=== PATIENT | male | born 1990 | race Hispanic/Latino ===

== ENCOUNTER 2018-06-22 20:30 | Observation (INO) | payer SELFPAY ==
--- NOTE | 2018-06-22 22:06 | CT ---
CT OF THE BRAIN WITHOUT CONTRAST: 06/22/18 INDICATION: Headache. COMPARISON: None. FINDINGS: No acute infarct, hemorrhage or hydrocephalus is present. The septum pellucidum and third ventricle a re midline. The skull and extracranial soft tissues are normal appearing. IMPRESSION: No acute intracranial abnormality. POS: [facility]
--- NOTE | 2018-06-22 22:22 | RAD ---
CHEST ONE VIEW: 06/22/18 INDICATION: Chest pain and headache. COMPARISON: None. FINDINGS: The lungs are clear. The cardiomediastinal silhouette is normal. No acute osseous abnormality is evid ent. IMPRESSION: No acute cardiopulmonary abnormality. POS: [facility]
[2018-06-22 22:46] LABS: #Eosinphils 0.1 thou/uL (0.0-0.7); #Lymphocytes 3.1 thou/uL (1.20-3.40); #Monocytes 0.8 thou/uL (0.11-0.59); #Neutrophils 7.3 thou/uL (1.40-6.50); %Basophils 0.3 % (0.0-1.0); %Lymphocytes 27.3 % (21.0-51.0); %Neutrophils 64.3 % (42.0-75.0); Hemoglobin 15.7 g/dL (14.0-18.0); Mean Corpuscular HGB CONC 34.3 g/dL (32.0-36.0); Mean Corpuscular Hemoglobin 30.6 pg (27.0-31.0); Mean Platelet Volume 8.2 fL (7.4-10.4); Platelet Count 217 thou/uL (130-400); RBC Distribution Width 12.3 % (11.5-14.5); Red Blood Cell (RBC) Count 5.12 mill/uL (4.70-6.10); White Blood Cell (WBC) Count 11.3 thou/uL (4.8-10.8)
[2018-06-22 22:55] LABS: ALT (SGPT) 30 U/L (8-55); AST (SGOT) 22 U/L (5-34); Albumin 4.7 g/dL (3.5-5.0); Alkaline Phosphatase 100 U/L (40-150); Anion Gap 12 mmol/L (10-20); BUN (Urea Nitrogen) 5 mg/dL (8.9-20.6); Bilirubin, Total 0.8 mg/dL (0.2-1.2); CK (CPK) 398 U/L (30-200); Calc. Creatinine Clearance 0 mL/min (70-130); Calcium 9.7 mg/dL (7.8-10.44); Carbon Dioxide 27 mmol/L (22-29); Chloride 102 mmol/L (98-107); Estimated GFR-MDRD Greater than 90; Globulin 3.1 g/dL (2.4-3.5); Glucose 105 mg/dL (70-105); Potassium 3.2 mmol/L (3.5-5.1); Protein, Total 7.8 g/dL (6.0-8.3); Sodium 138 mmol/L (136-145)
[2018-06-22 22:59] LABS: Troponin I Less than 0.010 ng/mL (< 0.028)
[2018-06-23] MEDS ORDERED: Aspirin 325 MG TAB ONE (01:12)
[2018-06-23] MEDS ORDERED: Nitroglycerin 2% Ointment 1 INCH/1 GM Packet ONE (01:12)
[2018-06-23] MEDS ORDERED: Ondansetron HCl/PF 4 MG/2 ML Vial IVP PRN (02:22)
[2018-06-23] MEDS ORDERED: Acetaminophen 325 MG TAB PO PRN (02:22)
[2018-06-23] MEDS ORDERED: Ondansetron ODT 4 MG TAB SL PRN (02:22)
[2018-06-23 02:25] VITALS: BMI 23.6
[2018-06-23 02:39] LABS: Troponin I Less than 0.010 ng/mL (< 0.028)
[2018-06-23 05:07] LABS: Troponin I Less than 0.010 ng/mL (< 0.028)
[2018-06-23] MEDS ORDERED: Fioricet 325/50/40 mg Tablet PO PRN (07:52)
[2018-06-23 08:24] VITALS: BP 121/76; TEMP 97.9
[2018-06-23 09:14] LABS: Anion Gap 9 mmol/L (10-20); BUN (Urea Nitrogen) 7 mg/dL (8.9-20.6); Calc. Creatinine Clearance 115 mL/min (70-130); Calcium 9.2 mg/dL (7.8-10.44); Carbon Dioxide 28 mmol/L (22-29); Chloride 105 mmol/L (98-107); Estimated GFR-MDRD Greater than 90; Glucose 100 mg/dL (70-105); Sodium 138 mmol/L (136-145)
--- NOTE | 2018-06-23 20:24 | SS ---
DATE OF ADMISSION: 06/23/2018 DATE OF DISCHARGE: 06/23/2018 CHIEF COMPLAINT: Chest pain and headache. HISTORY OF PRESENT ILLNESS: The patient is a very pleasant 28-year-old male who initially presented to the hospital with complaints of chest pain and also headache which started yesterday. The patient 's is at the bedside since the patient does not speak any Romanian, stated that he has been under a lot of stress and has been drinking very heavily. The patient started having some chest tightness . No radiation was noted. He also has had some headache. Denies any nausea, vomiting, diaphoresis or shortness of breath. The patient currently does not have any chest pain. The patient was admitte d overnight. His troponins x3 were negative. His sed rate was normal. Patient underwent an exercis e stress test, which was negative. He was discharged home. He will follow up with his primary and h e was advised to refrain from alcohol use. PAST MEDICAL HISTORY: Denies any past medical history. PAST SURGICAL HISTORY: Denies any surgical history. FAMILY HISTORY: No family history of heart disease or diabetes. SOCIAL HISTORY: Patient smokes half a pack a day and also drinks 5-6 drinks a day and heavily on the weekends. Denies any alcohol, any drug use; however, he has history of use of substance abuse. REVIEW OF SYSTEMS: All negative except for the ones mentioned above in the HPI. ALLERGIES: No known drug allergies. MEDICATIONS: None. LABORATORY DATA AND IMAGING DATA: Sodium of 138, potassium of 3.2, BUN of 5, creatinine 0.85, AST of 22, ALT of 30. Troponin x3 were negative. His WBC is 11.3, hemoglobin of 15.7, hematocrit 45.6, pl atelets of 217. EKG appeared to be sinus omar. He also had a brain CT, which was normal. He also had a chest x-ray which was normal. PHYSICAL EXAMINATION: VITAL SIGNS: Temperature of 98.2, heart rate of 59, 18, 99% room air, 112/64. GENERAL: He was awake, alert, and oriented x3, does not appear in any distress. CARDIOVASCULAR: S1, S2 present. No murmurs, rubs or gallops. ABDOMEN: Soft, nontender. Bowel sounds are present x2. EXTREMITIES: No edema. Pedal pulses are present x2. LUNGS: Clear to auscultation. NEUROLOGIC: No focal deficits noted. SKIN: No lesions noted. ASSESSMENT AND PLAN: The patient is a very pleasant 28-year-old male who presents to the hospital wi th chest pain and headache. 1. Atypical chest pain. The patient currently has no chest pains. Troponins x3 are negative. The patient did undergo an exercise stress test, which was negative. He will be discharged home today. He will follow up with his primary. 2. Alcohol use. The patient was advised against alcohol and smoking. He is currently not intereste d in a patch; however, he states that he will think about it. Bradycardia, however, asymptomatic. P atient takes no home medications. Patient will be discharged home. He will follow up with his [facility] as an outpatient.
--- NOTE | 2018-06-24 08:41 | EKG ---
Test Reason : SOB Blood Pressure : / mmHG Vent. Rate : 086 BPM Atrial Rate : 086 BPM P-R Int : 142 ms QRS Dur : 078 ms QT Int : 360 ms P-R-T Axes : 062 065 018 degrees QTc Int : 430 ms Normal sinus rhythm Nonspecific T wave abnormality Abnormal ECG Confirmed by STEPH RABAGO ([id number]) on 06/24/2018 8:41:18 AM Referred By: Confirmed By:STEPH RABAGO
--- NOTE | 2018-06-24 08:43 | EKG ---
Test Reason : Blood Pressure : / mmHG Vent. Rate : 071 BPM Atrial Rate : 071 BPM P-R Int : 136 ms QRS Dur : 076 ms QT Int : 394 ms P-R-T Axes : 054 055 006 degrees QTc Int : 428 ms Normal sinus rhythm Nonspecific T wave abnormality , can not rule out anteroseptal ischemic changes. Abnormal ECG Confirmed by STEPH RABAGO ([id number]) on 06/24/2018 8:42:47 AM Referred By: Confirmed By:STEPH RABAGO
--- NOTE | 2018-06-25 08:32 | STRESS ---
Acquisition Time: 2018-06-23 11:42:07 Total Exercise Time: 00:10:00 Test Indications: CHEST PAIN Medications: Protocol: KATARINA Max HR: 164 BPM 85% of Pred: 191 BPM Max BP: 148/060 mmHG Max Work Load: 13.4 METS RESTING ECG: NORMAL SINUS RHYTHM AT 70 BPM WITH J-POINT ELEVATION IN INFEROLATERAL LEADS SYMPTOMS: DYSPNEA ON EXERTION NORMAL BP RESPONSE ECTOPY: NONE ECG STRESS: NO SIGNIFICANT CHANGES INTERPRETATION: NEGATIVE GXT Confirmed by ROSHAN CAMILO ([id number]) on 06/25/2018 8:32:19 AM Referred By: MD Diana WEBSTER Confirmed By:ROSHAN CAMILO
== END 2018-06-23 15:07 | disposition home or self-care (01) ==
LOC: ERS 20:30 → 2SW 06-23 02:13
PROVIDERS: ADMIT Internal Medicine; ATTEND Internal Medicine
DX: R07.89 Other chest pain (principal); R51 Headache; F17.210 Nicotine dependence, cigarettes, uncomplicated
CPT/HCPCS: 36415; 70450; 71045; 80048; 80053; 82553; 84484; 85025; 85379; 85652; 86140; 90471; 90686; 90732; 93005; 93017; 94760; 96360; G0008; G0009; G0378